=== PATIENT | male | born 1975 ===

== ENCOUNTER 2020-06-03 05:03 | Day surgery (SDC) | payer BC ==
[~2020-06-03] VITALS: Ht 188 cm; Wt 131.5 kg
[2020-06-03] VITALS (9 sets, daily range): BP systolic 125–148; BP diastolic 76–94; PULSE 45–58; TEMP 97–97.1
[2020-06-03] MEDS ORDERED: LASIX 40MG TABL40 MG PO (06:22)
[2020-06-03] MEDS ORDERED: CORDARONE200 MG/TAB PO (06:23)
[2020-06-03] MEDS ORDERED: TOPROL XL 50MG50 MG PO (06:24)
[2020-06-03] MEDS ORDERED: ELIQUIS 5MG PO (06:25)
[2020-06-03] MEDS ORDERED: MOTRIN 600600 MG/TAB PO (06:26)
[2020-06-03] MEDS ORDERED: ASPIRIN E.C. 8181 MG PO (06:27)
--- NOTE | 2020-06-03 09:30 | NUR ---
TO PACU ISOLATION RM. PATIENT SLEEPING AND CALL LIGHT IN REACH. RIGHT LEG ELEVATED AND ICED.
--- NOTE | 2020-06-03 09:45 | NUR ---
RIGHT LEG ELEVATED. DRESSING CLEAN DRY INTACT. PATIENT CONTINUES TO SLEEP QUIETLY
--- NOTE | 2020-06-03 10:00 | NUR ---
PATIENT SLEEPING. NO DISTRESS NOTED
--- NOTE | 2020-06-03 10:15 | NUR ---
MORE AWAKE AND RECEIVED WATER AND CRACKERS.
--- NOTE | 2020-06-03 10:30 | NUR ---
ABLE TO MOVE LEGS,BUT NOT WIGGLE TOES.
--- NOTE | 2020-06-03 11:00 | NUR ---
ATE 100% AND TOLERATED WELL.
--- NOTE | 2020-06-03 11:30 | NUR ---
RECEIVED DISCHARGE INSTRUCTIONS AND VERBALIZED UNDERSTANDING. DISCONTINUES IV AND INT PATIENT ABLE TO STAND ON LEFT LEG AND STATED HE FELT GOOD STANDING ON HIS L FOOT. DRESSED SELF AND TOLERATED WELL.
--- NOTE | 2020-06-03 11:45 | NUR ---
AMBULATED WITH CRUTCHES TO BATHROOM.
--- NOTE | 2020-06-03 12:00 | NUR ---
DISCHARGED PER WC BY NURSING STAFF TO PRIVATE CAR IN CARE OF MOTHER AND STEP FATHER.
== END 2020-06-03 12:15 | disposition home or self-care (01) ==
LOC: SDCO 05:03
DX: S82.841A Displaced bimalleolar fracture of right lower leg, initial encounter for closed fracture (principal); J30.1 Allergic rhinitis due to pollen; U07.1 COVID-19; I10 Essential (primary) hypertension; K21.9 Gastro-esophageal reflux disease without esophagitis; Z87.891 Personal history of nicotine dependence; Z79.01 Long term (current) use of anticoagulants; Z95.1 Presence of aortocoronary bypass graft; Z79.899 Other long term (current) drug therapy; Z79.82 Long term (current) use of aspirin; Z80.9 Family history of malignant neoplasm, unspecified; Z83.3 Family history of diabetes mellitus
CPT/HCPCS: C1713; J0690; J1100; J2250; J2405; J2704; J2795; J3010; J7120